=== PATIENT | female | born 1980 | race Caucasian/White ===

== ENCOUNTER 2017-01-05 12:02 | Emergency (ER) | payer SELFPAY ==
[2017-01-05 12:02] VITALS: BMI 24.6
[2017-01-05] MEDS ORDERED: Sodium Chloride 0.9% 1,000 ML IV ONE (12:31)
[2017-01-05] MEDS ORDERED: Sodium Chloride 0.9% 1,000 ML ONE (12:42)
--- NOTE | 2017-01-05 12:47 | C.PDOC ---
History Of Present Illness 36 y/o female with Hx of ovarian cyst presents to ED with complaints of lower abdominal pain for 2 weeks. Patient reports she has not had her menses since 2016. Patient denies fever, chills n/v/d, or any other complaints at this time. Time Seen by Provider: 01/05/17 12:23 Chief Complaint (Nursing): Abdominal Pain History Per: Patient History/Exam Limitations: no limitations Onset/Duration Of Symptoms: Days Current Symptoms Are (Timing): Still Present Location Of Pain/Discomfort: Suprapubic Past Medical History Reviewed: Historical Data, Nursing Documentation, Vital Signs Vital Signs: Last Vital Signs Temp 97.5 F L 01/05/17 14:25 Pulse 73 01/05/17 14:25 Resp 20 01/05/17 14:25 BP 112/73 01/05/17 14:25 Pulse Ox 99 01/05/17 14:25 Surgical History: No Surg Hx - [facility] Procedures INJECT/INFUSE NEC (03/03/14) Family History: States: No Known Family Hx - Social History Hx Tobacco Use: No Hx Alcohol Use: No Hx Substance Use: No - Immunization History Hx Tetanus Toxoid Vaccination: No Hx Influenza Vaccination: No Hx Pneumococcal Vaccination: No Review Of Systems Except As Marked, All Systems Reviewed And Found Negative. Constitutional: Negative for: Fever, Chills Gastrointestinal: Positive for: Abdominal Pain. Negative for: Nausea, Vomiting , Diarrhea Genitourinary: Negative for: Dysuria, Vaginal Discharge, Vaginal Bleeding Skin: Negative for: Rash Physical Exam - Physical Exam Appears: Non-toxic, No Acute Distress Skin: Normal Color, Warm, Dry, No Rash Head: Atraumatic, Normacephalic Eye(s): bilateral: Normal Inspection Oral Mucosa: Moist Neck: Normal ROM, Supple Chest: Symmetrical Cardiovascular: Rhythm Regular, No Murmur Respiratory: Normal Breath Sounds, No Rales, No Rhonchi, No Wheezing Gastrointestinal/Abdominal: Soft, Tenderness (Suprapubic ), No Guarding, No Rebound Back: No CVA Tenderness, No Paraspinal Tenderness Extremity: Normal ROM, Capillary Refill (<2 seconds) Neurological/Psych: Oriented x3 ED Course And Treatment - Laboratory Results Result Diagrams: 01/05/17 12:52 01/05/17 12:52 Lab Interpretation: Normal Urine POC: Positive O2 Sat by Pulse Oximetry: 100 (RA) Pulse Ox Interpretation: Normal - CT Scan/US No standard instances Other Rad Studies (CT/US): Read By Radiologist, Radiology Report Reviewed CT/US Interpretation: indings: The uterus measures approximately 14.0 x 7.5 x 9.5 cm. Anteverted. Cervix length measures approximately 4.1 cm. There is a single intrauterine fetus present. 5 mm yolk sac. The gestational sac measures 6.4 cm. The crown-rump length measures 3.1 cm and is compatible with a gestational age of 10 weeks 0 days. There is heart motion which measured 154.4 BPM. The right ovary measures 3.2 x 1.8 x 2.8 cm. Blood flow is demonstrated the right ovary. The left ovary is absent, by history surgically removed. Impression: Live single intrauterine with estimated gestational age 10 weeks 0 days. heart rate 154.4 bpm. Advise an anomaly screen at 16-18 weeks gestational age Progress Note: Treated with IVF NSS. Patient advised to follow up with OB for further evaluation Reassessment Condition: Improved Medical Decision Making Medical Decision Making: Plan: * US * Labs Disposition Counseled Patient/Family Regarding: Studies Performed, Diagnosis, Need For Followup - Disposition Referrals: [facility] [Outside] [facility] [Outside] Disposition: HOSPITALIZED Disposition Time: 14:15 Condition: STABLE Additional Instructions: Follow up with your [facility] Instructions: Abdominal Pain in (ED) Forms: [facility] (Estonian) Print Language: SLOVENIAN - POA Present On Arrival: None - Clinical Impression Clinical Impression: Abdominal pain affecting - PA / SIGNAL HELPER / Resident Statement MD/DO has reviewed & agrees with the documentation as recorded. - Scribe Statement The provider has reviewed the documentation as recorded by the Lulu Santoro All medical record entries made by the Lulu were at my direction and personally dictated by me. I have reviewed the chart and agree that the record accurately reflects my personal performance of the history, physical exam, medical decision making, and the department course for this patient. I have also personally directed, reviewed, and agree with the discharge instructions and disposition.
[2017-01-05 12:59] LABS: BASO % 0.5 % (0.0-2.0); EOS % 0.7 % (0.0-4.0); HEMATOCRIT 37.8 % (34.0-47.0); LYMPH # 2.2 K/uL (1.0-4.3); LYMPH % 31.1 % (20.0-40.0); MEAN CELL VOLUME 88.4 fL (81.0-99.0); MEAN CORPUSCULAR HEMOGLOBIN 30.2 pg (27.0-31.0); MEAN CORPUSCULAR HGB CONC 34.2 g/dL (33.0-37.0); MONO # 0.4 K/uL (0.0-0.8); MONO % 5.8 % (0.0-10.0); RED CELL DISTRIBUTION WIDTH 13.4 % (11.5-14.5); WHITE BLOOD COUNT 7.1 K/uL (4.8-10.8)
[2017-01-05 13:04] LABS: CHLORIDE 102 mmol/L (98-107)
[2017-01-05 13:05] LABS: POTASSIUM 3.7 mmol/L (3.6-5.2); SODIUM 135 mmol/L (132-148)
[2017-01-05 13:07] LABS: ALB/GLOB RATIO 1.5 (1.0-2.1); ALKALINE PHOSPHATASE 78 U/L (38-126); AST/SGOT 20 U/L (14-36); BILIRUBIN,TOTAL 1.1 mg/dL (0.2-1.3); BLOOD UREA NITROGEN 6 mg/dL (7-17); CARBON DIOXIDE 20 mmol/L (22-30); GFR AFRICAN-AMERICAN > 60; GLUCOSE,RANDOM 71 mg/dL (65-105); TOTAL PROTEIN 7.5 g/dL (6.3-8.3); URINE BACTERIA OCC (<OCC); URINE BILIRUBIN NEGATIVE (NEGATIVE); URINE BLOOD NEGATIVE (NEGATIVE); URINE COLOR Straw (YELLOW); URINE GLUCOSE (UA) NORMAL (Normal); URINE KETONE NEGATIVE (NEGATIVE); URINE LEUKOCYTE ESTERASE NEG Leu/uL (Negative); URINE PROTEIN NEGATIVE (NEGATIVE); URINE UROBILINOGEN NORMAL mg/dL (0.2-1.0); WBC URINE < 1 /hpf (0-5)
[2017-01-05 13:08] LABS: ALT/SGPT 34 U/L (9-52); CALCIUM 8.7 mg/dl (8.6-10.4)
--- NOTE | 2017-01-05 14:00 | US ---
Indication: Bleeding Comparison: None available. Technique: Transabdominal pelvic ultrasound Findings: The uterus measures approximately 14.0 x 7.5 x 9.5 cm. Anteverted. Cervix length measures approximately 4.1 cm. There is a single intrauterine fetus present. 5 mm yolk sac. The gestational sac measures 6.4 cm. The crown-rump length measures 3.1 cm and is compatible with a gestational age of 10 weeks 0 days. There is heart motion which measured 154.4 BPM. The right ovary measures 3.2 x 1.8 x 2.8 cm. Blood flow is demonstrated the right ovary. The left ovary is absent, by history surgically removed. Impression: Live single intrauterine with estimated gestational age 10 weeks 0 days. heart rate 154.4 bpm. Advise an anomaly screen at 16-18 weeks gestational age
[2017-01-05 14:26] VITALS: BP 112/73; PULSE 73; RESP 20; TEMP 97.5
[2017-01-05 16:41] VITALS: O2SAT 100
== END 2017-01-05 14:26 | disposition short-term general hospital (02) ==
LOC: C.ER 12:02
DX: O26.891 Other specified pregnancy related conditions, first trimester (principal); R10.30 Lower abdominal pain, unspecified; Z3A.10 10 weeks gestation of pregnancy
CPT/HCPCS: 76801; 80053; 81001; 84702; 84703; 85025; 96360; 99285; J7040

== ENCOUNTER 2018-01-01 20:01 | Emergency (ER) | payer MEDICAID ==
[2018-01-01 20:02] VITALS: BMI 24.6
[2018-01-01 20:10] VITALS: TEMP 98.3
--- NOTE | 2018-01-01 20:30 | C.PDOC ---
History Of Present Illness 37 year old female presents to the ED c/p left sided chest pain for the past 3 days. Patient states her pain today pain was stronger. Patient states pain worsens with deep breathing. Patient reports she has been taking a medication [place]. Patient denies injury, fall, trauma, headache, heavy lifting. Time Seen by Provider: 01/01/18 20:29 Chief Complaint (Nursing): Chest Pain History Per: Patient History/Exam Limitations: no limitations Onset/Duration Of Symptoms: Days (3) Current Symptoms Are (Timing): Still Present Context: Other Severity: Mild Pain Scale Rating Of: 3 Quality: Dull Associated Symptoms: denies: Nausea Modifying Factors: None Exacerbating Factors: Deep Breathing Alleviating Factors: None Recent travel outside of the [place]: No Additional History Per: Patient Past Medical History Reviewed: Historical Data, Nursing Documentation, Vital Signs Vital Signs: Last Vital Signs Temp 98.3 F 01/01/18 20:08 Pulse 66 01/01/18 22:46 Resp 18 01/01/18 22:46 BP 103/67 01/01/18 22:46 Pulse Ox 97 01/01/18 22:46 - Medical History PMH: No Chronic Diseases Surgical History: No Surg Hx - [facility] Procedures INJECT/INFUSE NEC (03/03/14) Family History: States: Unknown Family Hx - Social History Hx Tobacco Use: No Hx Alcohol Use: No Hx Substance Use: No - Immunization History Hx Tetanus Toxoid Vaccination: No Hx Influenza Vaccination: No Hx Pneumococcal Vaccination: No Review Of Systems Constitutional: Negative for: Fever, Chills Eyes: Negative for: Vision Change Cardiovascular: Positive for: Chest Pain. Negative for: Palpitations Respiratory: Negative for: Shortness of Breath Gastrointestinal: Negative for: Nausea, Vomiting, Abdominal Pain Neurological: Negative for: Weakness, Numbness, Headache, Dizziness Physical Exam - Physical Exam Appears: Non-toxic, No Acute Distress Skin: Warm, Dry Head: Normacephalic Eye(s): bilateral: Normal Inspection Neck: Supple Chest: Symmetrical, Tenderness (reproducible) Cardiovascular: Rhythm Regular Respiratory: No Rales, No Rhonchi, No Wheezing Gastrointestinal/Abdominal: Soft, No Tenderness, No Guarding, No Rebound Back: Normal Inspection Extremity: No Tenderness, No Swelling Extremity: Bilateral: Atraumatic, Normal Color And Temperature, Normal ROM Neurological/Psych: Oriented x3, Normal Speech Gait: Steady ED Course And Treatment - Laboratory Results Result Diagrams: 01/01/18 20:53 01/01/18 20:53 ECG: Interpreted By Me, Viewed By Me ECG Rhythm: Sinus Rhythm (80), Nonspecific Changes O2 Sat by Pulse Oximetry: 99 (ON RA) Pulse Ox Interpretation: Normal - Radiology CXR: Interpreted by Me, Viewed By Me CXR Interpretation: No: Infiltrates, Fracture, Pnemothorax Progress Note: 11:10 pt is chest pain free. wants to home. Reevaluation Time: 23:13 Reassessment Condition: Improved Disposition Counseled Patient/Family Regarding: Studies Performed, Diagnosis, Need For Followup, Rx Given - Disposition Referrals: [facility] [Outside] [facility] [Outside] Disposition: HOME/ ROUTINE Disposition Time: 20:29 Condition: FAIR Additional Instructions: Please return if symptoms recur Prescriptions: Naproxen [Naprosyn] 1 tab PO BID PRN #25 tab PRN Reason: Pain Instructions: Costochondritis (DC) Forms: [facility] (Luxembourgish) Print Language: MAURITANIAN - Clinical Impression Clinical Impression: Costochondral chest pain - Scribe Statement The provider has reviewed the documentation as recorded by the Scribe Erik Baldwin All medical record entries made by the Scribe were at my direction and personally dictated by me. I have reviewed the chart and agree that the record accurately reflects my personal performance of the history, physical exam, medical decision making, and the department course for this patient. I have also personally directed, reviewed, and agree with the discharge instructions and disposition.
[2018-01-01] MEDS ORDERED: Aspirin 325 mg EC Tablets PO STA (20:40)
[2018-01-01 21:03] LABS: BASO % 0.4 % (0.0-2.0); EOS # 0.1 K/uL (0.0-0.7); EOS % 1.7 % (0.0-4.0); HEMOGLOBIN 13.4 g/dL (11.0-16.0); LYMPH # 2.5 K/uL (1.0-4.3); LYMPH % 38.2 % (20.0-40.0); MEAN CELL VOLUME 87.8 fL (81.0-99.0); MEAN CORPUSCULAR HGB CONC 34.1 g/dL (33.0-37.0); MEAN PLATELET VOLUME 7.8 fL (7.2-11.7); MONO # 0.4 K/uL (0.0-0.8); MONO % 6.9 % (0.0-10.0); NEUT # 3.4 K/uL (1.8-7.0); NEUT % 52.8 % (50.0-75.0); NRBC % 0.1 % (0.0-2.0); RBC 4.47 Mil/uL (3.80-5.20); RED CELL DISTRIBUTION WIDTH 13.3 % (11.5-14.5); WHITE BLOOD COUNT 6.5 K/uL (4.8-10.8)
[2018-01-01] MEDS ORDERED: Aspirin 325 mg EC Tablets PO ONE (21:04)
[2018-01-01 21:15] LABS: ALB/GLOB RATIO 1.4 (1.0-2.1); ALBUMIN 4.9 g/dL (3.5-5.0); ALT/SGPT 39 U/L (9-52); AST/SGOT 26 U/L (14-36); BLOOD UREA NITROGEN 9 mg/dL (7-17); CALCIUM 9.6 mg/dl (8.6-10.4); GFR NON-AFRICAN AMERICAN > 60; LIPASE 94 U/L (23-300)
[2018-01-01 21:17] LABS: HCG,QUALITATIVE URINE NEGATIVE (NEGATIVE)
[2018-01-01 21:20] LABS: SQUAMOUS EPITHIAL 3 /hpf (0-5); URINE BACTERIA RARE (<OCC); URINE BILIRUBIN NEGATIVE (NEGATIVE); URINE BLOOD NEGATIVE (NEGATIVE); URINE CLARITY Clear (Clear); URINE COLOR Colorless (YELLOW); URINE GLUCOSE (UA) NORMAL (Normal); URINE LEUKOCYTE ESTERASE NEG Leu/uL (Negative); URINE PROTEIN NEGATIVE (NEGATIVE); URINE UROBILINOGEN NORMAL mg/dL (0.2-1.0)
[2018-01-01 22:47] VITALS: BP 103/67; PULSE 66; RESP 18
[2018-01-01 23:15] VITALS: O2SAT 99
--- NOTE | 2018-01-02 09:35 | RAD ---
Chest x-ray single frontal view History: Chest pain. Comparison: 01/01/2018 Findings: No focal infiltrate or effusion. Heart size within normal limits. Impression: No focal infiltrate or effusion.
--- NOTE | 2018-01-02 18:59 | CARD ---
APPROVED REPORT Date of service: 01/01/2018 EKG Measurement Heart [id number] <Conclusion> Normal sinus rhythm Normal ECG
== END 2018-01-01 23:26 | disposition home or self-care (01) ==
LOC: C.ER 20:01
DX: R07.89 Other chest pain (principal)
CPT/HCPCS: 71045; 80053; 81001; 83690; 84484; 84703; 85025; 87086; 93005; 96374; 99285; J1885